=== PATIENT | female | born 1975 | race Caucasian/White ===

== ENCOUNTER 2018-01-27 10:37 | Inpatient (IN) | END 2018-01-29 12:00 | disposition home or self-care (01) | DRG 471 ==

== ENCOUNTER 2018-11-23 05:37 | Day surgery (SDC) | payer OTHER ==
[2018-11-20 15:56] VITALS: Ht 168.9 cm; Wt 63.2 kg
[2018-11-23] VITALS (19 sets, daily range): BP systolic 101–132; BP diastolic 66–86; PULSE 80–104; RESP 12–23
[~2018-11-23] VITALS: Ht 168.9 cm; Wt 63.2 kg
--- NOTE | 2018-11-23 05:35 | HPN ---
Date/Time of Note Date/Time of Note DATE: 11/23/18 TIME: 05:35 Interval H&P Admission Note Pt. seen H&P reviewed: No system changes GREG SERRANO MD Nov 23, 2018 05:35
[~2018-11-23 05:37] MED LIST: ALBU18HF INHALATION; ASPI-903 PO; CARI350T29 PO; GABA100C14 PO; GABA300C16 PO; INFLUENZA VIRUS VACCINE 0.5 ML (DISPENSING) IM* ONE; LANT3I SC; METF100010 PO; MONT10TA24 PO; OMEG1CAP90 PO; OMEP40CA6 PO; OXYC-438 PO
--- NOTE | 2018-11-23 05:37 | OPR ---
Date/Time of Note Date/Time of Note DATE: 11/23/18 TIME: 05:35 Operative Report Procedure Date: Nov 23, 2018 Preoperative Diagnosis Left hip labral tear Postoperative Diagnosis 1. Left hip labral tear 2. Left hip trochanteric bursitis 3. Left hip arthritis Operation/Procedure Performed 1. Left hip arthroscopic labral repair 2. Left hip endoscopic trochanteric bursectomy Surgeon see signature line Refrigerator Repair Technician Tuan De Paz PA-C Second Refrigerator Repair Technician: AYAD GRAY Anesthesia Type: general Estimated Blood Loss: minimal Transfusion none Specimen None Grafts/Implants none Complications none Pt Condition Post Procedure: stable Disposition: PACU Procedure Description MEDICAL CASH POSTER SURGEON: Tuan De Paz PA-C was asked to be present at my request as a result of the significant surgical complexity associated with this procedure. Specifically, the arthroscopic resection of the femoral neck requires expert assistance with respect to the positioning of the arthroscope, which is a 70-degree arthroscope, while the surgeon exchanges instruments to perform the resection and labral repair. In my opinion, the assistance offered by a rn surgical pcu is not sufficient as a result of their lack of training with these instruments. He should the refore be compensated for their time. PROCEDURE: Following the administration of general anesthesia supplemented with local anesthetic, the patient was placed in the supine position on the [employer] hip traction device. All prominences were properly padded, including the perineum and the ipsilateral arm. Examination of the left hip revealed a range of motion of 20 degrees of internal rotation with 90 of flexion. The left hip was prepped and draped in the usual sterile fashion. The leg was then placed in traction. Under fluoroscopic guidance, anterior and anterolateral portals were then established in the central compartment. CENTRAL COMPARTMENT DIAGNOSTIC: Examination revealed an area of grade 2 chondral delamination. The area extended from the 11 o'clock to the 2 o'clock position with distention of about 7 mm into the articular surface of the acetabulum. The labrum was detached in that same arc with significant hypertrophy. The ligamentum teres was partially torn with moderate to severe s ynovitis. The femoral cartilage revealed no significant abnormalities. CENTRAL COMPARTMENT PROCEDURE: The shaver and the ablator were then inserted. A limited capsulotomy was then performed over the area of the labral detachment. The sublabral recess was then cleared of soft tissue there and a bony resection of the anterior inferior iliac spine was then undertaken back to a normal configuration. Endoscopic and fluoroscopic visualization were used for confirmation. Following the resection and preparation, the labral repair was undertaken. A circumferential was then passed around the labrum. The anchor was incorporated into a Arthrex Push Lock anchor. The anchor was impacted, and the suture advanced and a solid repair was completed. Flexion of the leg after removal of traction showed a good labral seal. The arthroscopic equipment was then removed. The leg was taken out of traction and repositioned to 45 of flexion with neutral rotation. The anterior portal was then used for entry into the peripheral compartment while using fluoroscopic localization for the appropriate portal position along the femoral neck. PERIPHERAL COMPARTMENT DIAGNOSTIC: Endoscopic examination revealed a good labral seal. Further evaluation revealed the peripheral femoral cartilage no significant abnormalities. There was no cam lesion. TROCHANTERIC BURSECTOMY PROCEDURE: Following the diagnostic arthroscopy of the peripheral compartment the trochanteric bursa was then entered. We are bursal reactive tissue was noted. The ablator and the shaver was then used to excise all of the inflamed tissue and a complete bursectomy was performed. The abduc tor mechanism was evaluated and no abnormalities were noted. The arthroscopic equipment was then removed, following thorough irrigation of the joint to assure that all bony debris was cleared. The wounds were closed using #4-0 Monocryl sutures, followed by a sterile dressing. The patient was then extubated and transported to the recovery room in stable condition, having tolerated the procedure well. GREG SERRANO MD Nov 23, 2018 05:37
--- NOTE | 2018-11-23 05:47 | PDOCDIS ---
Discharge Instructions DIAGNOSIS Discharge Diagnosis Labral tear of the hip CONDITION [id number] Patient Condition: [id number] Good HOME CARE INSTRUCTIONS: [id number] Diet Instructions: [id number] Regular ACTIVITY: [id number] Activity Restrictions: [id number] Slowly Increase Activity Keep Limb Elevated [id number] Bathing Restrictions: [id number] Shower FOLLOW UP/APPOINTMENTS Follow-up Plan 2 weeks in the office SCHOOL/WORK RELEASE May return to School/Work with: With Restrictions School/Work Release Comment: Crutches with no pivoting or rotation for 4 weeks GREG SERRANO MD Nov 23, 2018 05:47
[2018-11-23] MEDS ORDERED: VANCOMYCIN 1 GM (PMX) 250 ML IVPB SCH (06:00)
[2018-11-23] MEDS ORDERED: TRANEXAMIC ACID 1GM/100ML(PMX) 100 ML IVPB SCH (06:00)
[2018-11-23] MEDS ORDERED: GABAPENTIN 300 MG CAP PO SCH (06:00)
[2018-11-23] MEDS ORDERED: DEXAMETHASONE 2 MG TAB PO SCH (06:00)
[2018-11-23] MEDS ORDERED: BUPIVACAINE 0.5% (SDV) 30 ML, morphine SULFATE (PF) 8 MG, EPINEPHrine 0.3 MG, KETOROLAC... IRR SCH ×7 (06:00)
[2018-11-23] MEDS ORDERED: LANT3I SC (06:50)
[2018-11-23] MEDS ORDERED: METF100010 PO (06:50)
[2018-11-23] MEDS ORDERED: GABA300C16 PO (06:51)
[2018-11-23] MEDS ORDERED: MONT10TA24 PO (06:51)
[2018-11-23] MEDS ORDERED: EPHEDrine SULFATE 50 MG/5 ML SYG ONE (07:00)
[2018-11-23] MEDS ORDERED: SEVOFLURANE 15 MIN ONE (07:00)
--- NOTE | 2018-11-23 08:06 | PREAC ---
Date/Time of Note Date/Time of Note DATE: 11/23/18 TIME: 08:04 Anesthesia Eval and Record Evaluation Time Pre-Procedure Interview DATE: 11/23/18 TIME: 08:04 Age 43 Sex female NPO: 8 hrs Preoperative diagnosis hip injury Planned procedure hip labial repair, resection of femoral neck Past Medical History Past Medical History: Includes Cardio: Dyslipidemia Endo: Diabetes Pulm: Smoking Hx Neuro: Peripheral neuropathy Surgery & Anesthesia Issues No known issue Meds Anticoagulation: No Beta Teodoro within 24 hr: No Reason Beta Teodoro not given: Pt. not on B-Teodoro Reported Medications Montelukast Sodium* (Montelukast Sodium*) 10 Mg Tablet, 10 MG PO QHS, #30 TAB 11/23/18 Gabapentin* (Gabapentin*) 300 Mg Capsule, 300 MG PO TID, #90 CAP 11/23/18 Metformin Hcl* (Metformin Hcl*) 1,000 Mg Tablet, 1000 MG PO WITH BREAKFAST DINNE, #60 TAB 11/23/18 Insulin Glargine* (Lantus*) 100 Unit/Ml Soln, 20 UNIT SC QHS, #1 VIAL 11/23/18 Discontinued Reported Medications Omeprazole* (Omeprazole*) 40 Mg Capsule.dr, 40 MG PO AC BREAKFAST, #30 CAP 01/27/18 Albuterol Sulfate* (Ventolin HFA*) 18 Gm Hfa.aer.ad, 2 PUFF INHALATION Q4H, #1 INHALER 01/27/18 Albuterol Sulfate* (Ventolin HFA*) 18 Gm Hfa.aer.ad, 2 PUFF INHALATION Q6H PRN for WHEEZING AND SOB, #1 INHALER 01/27/18 Aspirin* (Aspirin* Chew) 81 Mg Tab.chew, 81 MG PO DAILY, TAB.CHEW 01/27/18 Gabapentin* (Gabapentin*) 300 Mg Capsule, 600 MG PO QHS, #180 CAP 01/27/18 Gabapentin* (Gabapentin*) 100 Mg Capsule, 200 MG PO QAM, #180 CAP 01/27/18 Montelukast Sodium* (Montelukast Sodium*) 10 Mg Tablet, 10 MG PO QHS, #30 TAB 01/27/18 Insulin Glargine* (Lantus*) 100 Unit/Ml Soln, 16 UNIT SC QHS, #1 VIAL 10/28/15 Metformin Hcl* (Metformin Hcl*) 1,000 Mg Tablet, 1000 MG PO BID WITH MEALS, #60 TAB 10/28/15 Fish Oil/[place]-3 Fatty Acids ([place] 3 Fish Oil 1,000 Mg Cap) 1 Cap Capsule, 2-4 CAP PO DAILY 03/26/15 Insulin Glargine* (Lantus*) 100 Unit/Ml Soln, 24-30 UNIT SC HS, EA 03/26/15 Metformin Hcl* (Metformin Hcl*) 1,000 Mg Tablet, 1000 MG PO AC BREAKFAST DINNER, TAB 03/26/15 Discontinued Scripts Oxycodone HCl/Acetaminophen (Oxycodone-Acetaminophen 5-325) 1 Each Tablet, 1 TAB PO Q4H PRN for PAIN LEVEL 1-5 for 10 Days, #30 TAB Prov:ELVIA RESENDIZ 01/29/18 Carisoprodol* (Carisoprodol*) 350 Mg Tablet, 350 MG PO Q8H PRN for spasm for 10 Days, #30 TAB Prov:ELVIA RESENDIZ 01/29/18 Current Medications Vancomycin HCl 250 ml @ 250 mls/hr PRE-OP IVPB Last administered on 11/23/18at 06:52; Admin Dose 250 MLS/HR; Start 11/23/18 at 06:00; Stop 11/23/18 at 13:00 Tranexamic Acid 100 ml @ 200 mls/hr Pre-op IVPB ; Start 11/23/18 at 06:00; Stop 11/23/18 at 16:00 Bupivacaine HCl/ Morphine Sulfate/ Epinephrine/ Ketorolac Tromethamine/ Clonidine/Sodium Chloride/ Vancomycin HCl INTRA-OP IRR ; Start 11/23/18 at 06:00; Stop 11/23/18 at 16:00 Dexamethasone (Decadron) 2 mg ONCE PO Last administered on 11/23/18at 06:51; Admin Dose 2 MG; Start 11/23/18 at 06:00; Stop 11/23/18 at 16:00 Gabapentin (Neurontin) 300 mg ONCE PO Last administered on 11/23/18at 06:51; Admin Dose 300 MG; Start 11/23/18 at 06:00; Stop 11/23/18 at 16:00 Meds reviewed: Yes Allergies Coded Allergies: amoxicillin (Verified Allergy, Severe, 11/23/18) clavulanic acid (Verified Allergy, Severe, 11/23/18) sulfamethoxazole (Verified Allergy, Severe, 11/23/18) trimethoprim (Verified Allergy, Severe, 11/23/18) Allergies Reviewed: Yes Labs/Studies Labs Reviewed: Reviewed by anesthesiologist test: N/A Pre-procedure Exam Last vitals Vital Signs Date Temp Pulse Resp B/P (MAP) Pulse Ox O2 O2 Flow FiO2 Time Delivery Rate 11/23/18 98.1 80 17 132/86 96 Room Air 07:11 (101) Airway: Adequate mouth opening, Adequate thyromental dist Mallampati: Mallampati III Teeth: Normal Lung: Normal Heart: Normal ASA Physical Status ASA physical status: 2 Emergency: None Pre-operative Attestations Prior to commencing anesthesia and surgery, the patient was re-evaluated, there was verification of: *The patient's identity *The results of appropriate recent lab work and preoperative vital signs *The above evaluation not changing prior to induction *Anesthetic plan, risk benefits, alternative and complications discussed with patient/family; questions answered; patient/family understands, accepts and wishes to proceed. BEATRIZ MAR DO Nov 23, 2018 08:06
[2018-11-23] MEDS ORDERED: MIDAZOLAM 1 MG/ML 2 ML INJ ONE (08:16)
[2018-11-23] MEDS ORDERED: ROCURONIUM 50 MG INJ ONE (08:16)
[2018-11-23] MEDS ORDERED: PROPOFOL 20 ML ONE (08:16)
[2018-11-23] MEDS ORDERED: LIDOCAINE 1% (MDV) 20 ML INJ ONE (08:19)
[2018-11-23] MEDS ORDERED: ONDANSETRON 4 MG INJ IV PRN (08:30)
[2018-11-23] MEDS ORDERED: HYDROmorphONE 1 MG/5 ML IV SYRINGE IV PRN (08:30)
[2018-11-23] MEDS ORDERED: DIPHENHYDRAMINE 50 MG INJ IV PRN (08:30)
[2018-11-23] MEDS ORDERED: MEPERIDINE 25 MG INJ IV PRN (08:30)
[2018-11-23] MEDS ORDERED: OXYCODONE/ACETAMINOPHEN (5/325) TAB PO PRN ×2 (08:30)
[2018-11-23] MEDS ORDERED: PHENYLephrine (100 MCG/ML) 10ML SYG ONE (08:34)
[2018-11-23] MEDS ORDERED: DEXAMETHASONE 4 MG/ML 5 ML INJ ONE (08:45)
[2018-11-23] MEDS ORDERED: ONDANSETRON 4 MG INJ ONE (08:45)
[2018-11-23] MEDS ORDERED: ROPIVACAINE 0.5 % 30 ML VIAL ONE (08:54)
--- NOTE | 2018-11-23 09:44 | PAC ---
Date/Time of Note Date/Time of Note DATE: 11/23/18 TIME: 09:43 Post-Anesthesia Notes Post-Anesthesia Note Last documented vital signs Vital Signs Date Temp Pulse Resp B/P (MAP) Pulse Ox O2 O2 Flow FiO2 Time Delivery Rate 11/23/18 98.0 90 18 120/62 100 0943 11/23/18 80 17 132/86 96 Room Air 07:11 (101) Activity: WNL Respiratory function: WNL Cardiovascular function: WNL Mental status: Baseline Pain reasonably controlled: Yes Hydration appropriate: Yes Nausea/Vomiting absent: Yes BEATRIZ MAR DO Nov 23, 2018 09:44
[2018-11-23] MEDS: HYDROmorphONE 1 MG/5 ML IV SYRINGE IV PRN ×2 (09:49→10:16)
== END 2018-11-23 12:30 | disposition home or self-care (01) ==
LOC: SDS 05:37
PROVIDERS: ATTEND Orthopaedic Surgery
DX: S73.102A Unspecified sprain of left hip, initial encounter (principal); M70.62 Trochanteric bursitis, left hip; M16.12 Unilateral primary osteoarthritis, left hip; E78.5 Hyperlipidemia, unspecified; E11.9 Type 2 diabetes mellitus without complications; Z87.891 Personal history of nicotine dependence; G62.9 Polyneuropathy, unspecified; Z23 Encounter for immunization
CPT/HCPCS: 29916; 73530; 82962; 90686; J0171; J0735; J1100; J1170; J1885; J2175; J2250; J2274; J2370; J2405; J3010; J3370; J2795